=== PATIENT | female | born 1990 | race Asian ===

== ENCOUNTER 2017-09-24 02:40 | Emergency (ER) | payer BC ==
[2017-09-24 04:11] LABS: EGFR Non-African American 139.4 (>60)
[2017-09-24 04:18] LABS: Hematocrit 31 % (35-47); Mean Corpuscular HGB Conc 32 g/dl (31-36); Mean Corpuscular Hemoglobin 20 pg (27-31); Mean Corpuscular Volume 62 fL (80-97); Red Blood Count 5.04 10^6/ul (4.0-5.4); White Blood Count 8.8 10^3/ul (3.5-10.8)
[2017-09-24 04:19] LABS: Red Cell Distribution Width 18 % (10.5-15)
[2017-09-24 04:20] LABS: ABS Basophils 0 10^3/ul (0-0.2); ABS Eosinophils 0.1 10^3/ul (0-0.6); ABS Lymphocytes 1.7 10^3/ul (1.0-4.8); ABS Monocytes 0.7 10^3/ul (0-0.8); ABS Neutrophils 6.3 10^3/ul (1.5-7.7); ABS Nucleated RBC 0 10^3/ul; Eosinophil % 0.8 % (0-6); Lymphocyte % 19.1 % (25-47); Platelet Count 120 10^3/ul (150-450)
[2017-09-24 04:21] LABS: Nucleated Red Blood Cells % 0.3
--- NOTE | 2017-09-24 06:46 | ED ---
Eda Moseley Thomas, scribed for Alexander Messina on 09/24/17 at 0318 . GI/ HPI - HPI Summary HPI Summary: The patient is a 27 year old female who is 11.5 weeks presenting to the emergency department complaining of vaginal bleeding that began yesterday. An ultrasound was performed three days ago, although there was no bleeding at that time. The patient additionally complains of nausea and brief abdominal cramping. The patient denies vomiting, fever, and abdominal pain. G2, P0, A1. LMP was 07/05/17. - History of Current Complaint Chief Complaint: EDOBProblems Time Seen by Provider: 09/24/17 03:07 Stated Complaint: VAGINAL BLEEDING/11 WKS PREG Hx Obtained From: Patient Onset/Duration: Started Days Ago - 1, Still Present Timing: Constant Severity: Mild Pain Intensity: 0 Associated Signs and Symptoms: Positive: Other: - Vaginal bleeding nausea, abdominal cramping; NEGATIVE: vomiting, abd pain. Negative: Fever Aggravating Factor(s): Nothing Alleviating Factor(s): Nothing - Allergy/Home Medications Allergies/Adverse Reactions: Allergies Allergy/AdvReac Type Severity Reaction Status Date / Time No Known Allergies Allergy Verified 06/14/16 09:14 PMH/Surg Hx/FS Hx/Imm Hx Endocrine/Hematology History: Denies: Hx Anticoagulant Therapy Cardiovascular History: Denies: Hx Myocardial Infarction Opthamlomology History: Denies: Hx Legally Blind Infectious Disease History: No Infectious Disease History: Reports: Traveled Outside the [place] in Last 30 Days - [place] - Family History Known Family History: Positive: Cardiac Disease - paternal Negative: Hypertension, Diabetes - Social History Alcohol Use: Occasionally Substance Use Type: Reports: None Smoking Status (MU): Never Smoked Tobacco Review of Systems Negative: Fever Positive: Nausea, Other - Abdominal cramping. Negative: Abdominal Pain, Vomiting Positive: other - Vaginal bleeding All Other Systems Reviewed And Are Negative: Yes Physical Exam - Summary Physical Exam Summary: Appearance: Well appearing, no pain distress Skin: warm, dry, reflects adequate perfusion Head/face: normal Eyes: EOMI, BUZZ ENT: normal Neck: supple, non-tender Respiratory: CTA, breath sounds present Cardiovascular: RRR, pulses symmetrical Abdomen: non-tender, soft Pelvic: Pelvic exam is deferred. Bowel: present Musculoskeletal: normal, strength/ROM intact Neuro: normal, sensory motor intact, A&Ox3 Triage Information Reviewed: Yes Vital Signs On Initial Exam: Initial Vitals Temp Pulse Resp BP Pulse Ox 97.8 F 84 14 111/73 100 09/24/17 02:44 09/24/17 02:44 09/24/17 02:44 09/24/17 02:44 09/24/17 02:44 Vital Signs Reviewed: Yes Diagnostics - Vital Signs Vital Signs Temp Pulse Resp BP Pulse Ox 09/24/17 02:44 97.8 F 84 14 111/73 100 - Laboratory Lab Results: Lab Results 09/24/17 09/24/17 Range/Units 03:46 03:46 WBC 8.8 (3.5-10.8) 10^3/ul RBC 5.04 (4.0-5.4) 10^6/ul Hgb 10.0 L (12.0-16.0) g/dl Hct 31 L (35-47) % MCV 62 L (80-97) fL MCH 20 L (27-31) pg MCHC 32 (31-36) g/dl RDW 18 H (10.5-15) % Plt Count 120 L (150-450) 10^3/ul Neut % (Auto) 71.5 (38-83) % Lymph % (Auto) 19.1 L (25-47) % [place] % (Auto) 8.3 (1-9) % Eos % (Auto) 0.8 (0-6) % Baso % (Auto) 0.3 (0-2) % Absolute Neuts (auto) 6.3 (1.5-7.7) 10^3/ul Absolute Lymphs (auto) 1.7 (1.0-4.8) 10^3/ul Absolute Monos (auto) 0.7 (0-0.8) 10^3/ul Absolute Eos (auto) 0.1 (0-0.6) 10^3/ul Absolute Basos (auto) 0 (0-0.2) 10^3/ul Absolute Nucleated RBC 0 10^3/ul Nucleated RBC % 0.3 Large Platelets Present Hypochromasia 1+ Microcytosis 3+ Target Cells 1+ Elliptocytes 2+ Acanthocytes (Spur) 1+ Sodium 134 (133-145) mmol/L Potassium 4.1 (3.5-5.0) mmol/L Chloride 104 (101-111) mmol/L Carbon Dioxide 23 (22-32) mmol/L Anion Gap 7 (2-11) mmol/L BUN 7 (6-24) mg/dL Creatinine 0.52 (0.51-0.95) mg/dL Est GFR ( Amer) 179.3 (>60) Est GFR (Non-Af Amer) 139.4 (>60) BUN/Creatinine Ratio 13.5 (8-20) Glucose 110 H (70-100) mg/dL Calcium 8.9 (8.6-10.3) mg/dL Total Bilirubin 0.40 (0.2-1.0) mg/dL AST 18 (13-39) U/L ALT 10 (7-52) U/L Alkaline Phosphatase 37 (34-104) U/L Total Protein 6.5 (6.4-8.9) g/dL Albumin 3.9 (3.2-5.2) g/dL Globulin 2.6 (2-4) g/dL Albumin/Globulin Ratio 1.5 (1-3) Beta HCG, Quant 766967.00 mIU/mL Result Diagrams: 09/24/17 03:46 09/24/17 03:46 Lab Statement: Any lab studies that have been ordered have been reviewed, and results considered in the medical decision making process. - Additional Comments Diagnostic Additional Comments: Transvaginal ultrasound. PENDING--SEE [facility] Course/Dx - Course Assessment/Plan: The patient is a 27 year old female who is 11.5 weeks presenting to the emergency department complaining of vaginal bleeding that began yesterday. In the ED course the patient was given Lactated ringers. Urinalysis was obtained. Transvaginal Ultrasound is ordered and pending. The patient will be signed out to the next ED attending pending Transvaginal ultrasound. - Diagnoses Differential Diagnoses - Female: Incomplete , Threatened , Urinary Tract Infection Provider Diagnoses: Vaginal bleeding - Physician Notifications Discussed Care Of Patient With: Elysia Ayala Time Discussed With Above Provider: 04:19 Instructed by Provider To: Other - Dr. Ayala, OBGYN, says to wait until the morning. Discharge - Discharge Plan Condition: Stable Disposition: OTHER Discharge Disposition Comment: Signed out to the next ED attending pending Transvaginal ultrasound. Referrals: Donnell Kraft MD [Primary Care Provider] - The documentation as recorded by the Eda marinelli Thomas accurately reflects the service I personally performed and the decisions made by , Alexander Messina.
--- NOTE | 2017-09-24 08:30 | RAD ---
HISTORY: , vaginal bleeding, age by dates of 11 weeks and 4 days COMPARISONS: None TECHNIQUE: Multiple transverse and longitudinal ultrasound images were obtained of the pelvis using grayscale, color Doppler, spectral Doppler imaging and M-Mode Doppler imaging using the transabdominal transducer. FINDINGS: UTERUS: The uterus is normal in shape, size, contour, and echotexture. GESTATION: There is a single live intrauterine gestation. The crown-rump length measures 4.85 cm for a gestational age of 11 weeks and 5 days. The RACHEL is April 10, 2020. This is concordant with age by dates. cardiac motion is detected at a rate of 170 beats per minute. Gross movement is identified. anatomy cannot be assessed secondary to early dates. The amniotic fluid is qualitatively normal. There are no retroplacental fluid collections. CUL-DE-SAC: There is no free fluid within the cul-de-sac. RIGHT OVARY: The right ovary measures 2.9 x 1.2 x 1.2 cm. Normal arterial and venous waveforms are identifiable within the ovary on spectral Doppler imaging. LEFT OVARY: The left ovary measures 3.4 x 2.1 x 2.3 cm. There is a complex cystic lesion of the left ovary suggestive of a corpus luteum. Normal arterial and venous waveforms are identifiable within the ovary on spectral Doppler imaging. . OTHER: The cervix is long and closed measuring 5.3 cm. BLADDER: The visualized bladder is unremarkable. IMPRESSION: SINGLE LIVE GESTATION AT 11 WEEKS AND 5 DAYS BY CROWN-RUMP LENGTH. NO RETROPLACENTAL HEMORRHAGE.
[2017-09-24 08:31] LABS: Urine Appearance Clear; Urine Blood 1+ (Negative); Urine Color Yellow; Urine Ketones Negative (Negative); Urine Protein Negative (Negative); Urine Urobilinogen Negative (Negative)
[2017-09-24 08:59] VITALS: BP 91/56
--- NOTE | 2017-09-24 17:52 | ED ---
Chetan Moseley Angela, scribed for Rich Gonzáles MD on 09/24/17 at 0717 . Progress - Progress Note Progress Note: This pt was signed out by Dr. Messina, pending disposition, awaiting US. Pt is a 27 y/o female, currently 11 weeks and 4 days A1, presenting to [facility] with vaginal bleeding since yesterday. Pt sees Dr. Gomez in [place], [place]. LMP was 07/05/17. Physical Exam: VITAL SIGNS: Reviewed. GENERAL: Patient is a well-developed and nourished female who is lying comfortable in the stretcher. Patient is not in any acute respiratory distress. HEAD AND FACE: No signs of trauma. No ecchymosis, hematomas or skull depressions. No sinus tenderness. EYES: PERRLA, EOMI x 2, No injected conjunctiva, no nystagmus. EARS: Hearing grossly intact. Ear canals and tympanic membranes are within normal limits. MOUTH: Oropharynx within normal limits. NECK: Supple, trachea is midline, no adenopathy, no JVD, no carotid bruit, no c- spine tenderness, neck with full ROM. CHEST: Symmetric, no tenderness at palpation LUNGS: Clear to auscultation bilaterally. No wheezing or crackles. CVS: Regular rate and rhythm, S1 and S2 present, no murmurs or gallops appreciated. ABDOMEN: Soft, non-tender. No signs of distention. No rebound no guarding, and no masses palpated. Bowel sounds are normal. EXTREMITIES: FROM in all major joints, no edema, no cyanosis or clubbing. NEURO: Alert and oriented x 3. No acute neurological deficits. Speech is normal and follows commands. SKIN: Dry and warm Pt will be discharged to home, in stable condition, with diagnosis of threatened miscarriage. Condition: Stable Disposition: Home - Results/Orders Results/Orders: Transvaginal US, as read by radiologist: IMPRESSION: Single live gestation at 11 weeks and 5 days by crown-rump length. No retroplacental hemorrhage. Dr. Gonzáles has reviewed this radiology report. Re-Evaluation - Re-Evaluation First Eval Re-Evaluation Time: 07:45 Change: Improved Comment: She denies any cramping. Course/Dx - Course Course Of Treatment: This pt was signed out by Dr. Messina to follow up on results of the pelvic US. I discussed the case with Dr. Rich, ObGyn, who recommends for the pt be discharged home and be in pelvic rest. She will follow up with Dr. Gomez who is her ObGyn doctor. The pt and pts agree with the plan. Pt was instructed to return to the ED for any increased pelvic pain, vaginal bleeding or any other symptom. - Diagnoses Provider Diagnoses: Threatened miscarriage - Provider Notifications Discussed Care Of Patient With: Sesar Rich Time Discussed With Above Provider: 08:43 Instructed by Provider To: Other - I discussed pt care with Dr. Gomez, OB, who reports the pt can be discharged with bed rest and no intercourse for instructions. The documentation as recorded by the Chetan marinelli Angela accurately reflects the service I personally performed and the decisions made by me, Rich Gonzáles MD.
== END 2017-09-24 08:59 | disposition home or self-care (01) ==
LOC: ED 02:40
DX: O20.0 Threatened abortion (principal); Z3A.11 11 weeks gestation of pregnancy
CPT/HCPCS: 36415; 76801; 80053; 81003; 81015; 84702; 85025; 99282